=== PATIENT | male | born 1945 | race Caucasian/White ===

== ENCOUNTER 2017-11-21 12:55 | Day surgery (SDC) | payer MEDICARE, OTHER ==
[~2017-11-21] VITALS: Ht 177.8 cm; Wt 153.9 kg
[~2017-11-21 12:55] MED LIST: CIPR500 PO; MELO7.5 PO; OMEP20ER PO; TESTTP TOP; TRIHYD253A PO; VENL75ER PO
[2017-11-21] MEDS ORDERED: PRAVASTATIN SOD10 MG (14:06)
[2017-11-21] MEDS ORDERED: FUROSEMIDE5 GM (14:06)
[2017-11-21] MEDS ORDERED: WARF1 (14:06)
[2017-11-21] MEDS ORDERED: FINA5 (14:07)
[2017-11-21] MEDS ORDERED: LOSA25 (14:07)
[2017-11-21] MEDS ORDERED: OXYB5 (14:07)
[2017-11-21] MEDS ORDERED: BUPR75 (14:07)
== END 2017-11-21 16:27 | disposition home or self-care (01) ==
LOC: ORSCSDS 12:55
DX: Z12.11 Encounter for screening for malignant neoplasm of colon (principal); Z86.010 Personal history of colon polyps; Z80.0 Family history of malignant neoplasm of digestive organs; K57.30 Diverticulosis of large intestine without perforation or abscess without bleeding; D12.0 Benign neoplasm of cecum; D12.4 Benign neoplasm of descending colon; K63.5 Polyp of colon; I10 Essential (primary) hypertension; Z87.891 Personal history of nicotine dependence; G47.30 Sleep apnea, unspecified; Z68.43 Body mass index [BMI] 50.0-59.9, adult; K21.9 Gastro-esophageal reflux disease without esophagitis; E66.01 Morbid (severe) obesity due to excess calories; Z68.42 Body mass index [BMI] 45.0-49.9, adult; I50.9 Heart failure, unspecified; Z79.01 Long term (current) use of anticoagulants; Z79.899 Other long term (current) drug therapy
CPT/HCPCS: J2250; J7120

== ENCOUNTER → 2020-08-18 | Outpatient (CLI) | payer MEDICARE, OTHER ==
[~2020-08-18] MED LIST changes: +BUPR75; +FINA5; +FUROSEMIDE5 GM; +LOSA25; +OXYB5; +PRAVASTATIN SOD10 MG; +WARF1
[2020-08-19 18:21] LABS: Adenovirus F 40/41 Not Detected (NOT DETECT); Astrovirus Not Detected (NOT DETECT); Campylobacter Sp Not Detected (NOT DETECT); Cryptosporidium Not Detected (NOT DETECT); Cyclospora Cayetanensis Not Detected (NOT DETECT); E. Coli O157 Not Detected (NOT DETECT); Entamoeba Histolytica Not Detected (NOT DETECT); Enteroaggregative E. coli-EAEC Not Detected (NOT DETECT); Enteropathogenic E. coli-EPEC Not Detected (NOT DETECT); Enterotoxigenic E. coli-ETEC Not Detected (NOT DETECT); Giardia Lamblia Not Detected (NOT DETECT); Norovirus GI/GII Not Detected (NOT DETECT); Plesiomonas Shigelloides Not Detected (NOT DETECT); Rotavirus A Not Detected (NOT DETECT); Salmonella Sp Not Detected (NOT DETECT); Sapovirus Not Detected (NOT DETECT); Shiga Toxin-prod E. coli-STEC Not Detected (NOT DETECT); Shigella/Enteroin E. coli-EIEC Not Detected (NOT DETECT); Vibrio Cholerae Not Detected (NOT DETECT); Vibrio Sp Not Detected (NOT DETECT); Yersinia Enterocolitica Not Detected (NOT DETECT)
== END | disposition home or self-care (01) ==
LOC: LAB SHORT 20:21
PROVIDERS: Family Medicine
DX: R19.7 Diarrhea, unspecified (principal)
CPT/HCPCS: 0097U

== ENCOUNTER → 2020-12-20 | Outpatient (CLI) | payer MEDICARE, OTHER | END | disposition home or self-care (01) | LOC: LAB SHORT 08:02 | DX: B35.1 Tinea unguium (principal) | CPT/HCPCS: 88305; 88312 ==

== ENCOUNTER → 2021-07-28 | Outpatient (CLI) | payer MEDICARE, OTHER | LOC: LAB SHORT 10:45 | DX: L97.919 Non-pressure chronic ulcer of unspecified part of right lower leg with unspecified severity (principal) | CPT/HCPCS: 87070; 87075; 87205 ==

== ENCOUNTER → 2022-05-15 | Outpatient (CLI) | payer MEDICARE, OTHER | END | disposition home or self-care (01) | LOC: LAB SHORT 11:30 | DX: N39.0 Urinary tract infection, site not specified (principal) | CPT/HCPCS: 87077; 87086; 87186 ==

== ENCOUNTER → 2022-11-02 | Outpatient (CLI) | payer MEDICARE, OTHER | LOC: LAB SHORT 13:36 → LAB 13:36 | DX: L97.829 Non-pressure chronic ulcer of other part of left lower leg with unspecified severity (principal) | CPT/HCPCS: 87070; 87205 ==

== ENCOUNTER 2023-01-02 08:54 | Day surgery (SDC) | payer MEDICARE, OTHER ==
[~2023-01-02] VITALS: Ht 175.3 cm; Wt 154.7 kg
[2023-01-02] VITALS (8 sets, daily range): BP systolic 106–139; BP diastolic 69–89
[~2023-01-02 08:54] MED LIST changes: +ATEN25 PO; +HYDCHL25 PO; -LOSA25; +LOSA50 PO; +METF500 PO; +POTCHL20ER PO; +PRAV20 PO; -PRAVASTATIN SOD10 MG; +TAMS.4ER PO; +TERB250 PO; +VENL150ER PO; -VENL75ER PO; +VITAMIN B-122000 MC1 PO; -WARF1; +WARF1 PO
--- NOTE | 2023-01-02 12:46 | NUR ---
1230 PATIENT RETURNED FROM THE [facility], RFA ANGIOSEAL SITE CDI, NO BLEEDING, NO HEMATOMA. PULSE UNCHANGED.
--- NOTE | 2023-01-02 12:47 | NUR ---
PATIENT ON MONITOR, CALL LIGHT IN REACH. NO PAIN AT THE PRESENT TIME.
--- NOTE | 2023-01-02 12:53 | NUR ---
DR JASSO HERE TO SPEAK TO PATIENT ABOUT FINDINGS DURING PROCEDURE
--- NOTE | 2023-01-02 13:00 | NUR ---
hob elevated to 20 degrees.
--- NOTE | 2023-01-02 13:51 | NUR ---
PATIENT ASSISTED UP IN THE BED. HOB UP 45 DEGREES. R GROIN UNCHANGED. LUNCH TRAY SERVED. PATIENT FEEDING SELF. VVS. LOW BACK PAIN BUT AFTER REPOSITIONING WAS BETTER.
--- NOTE | 2023-01-02 14:42 | NUR ---
PATIENT UP TO REST ROOM AND GETTING DRESSED AT BEDSIDE.
--- NOTE | 2023-01-02 14:55 | NUR ---
patient verbalized understanding of discharge imnstructions and precautions. right groin site remains soft and nontender. no hematom, no bleeding. IV site dced with catheter intact.
--- NOTE | 2023-01-02 15:15 | NUR ---
right groin site remains stable. patient transferred via wheel cchair to waiting vehicle. friend driving
== END 2023-01-02 15:15 | disposition home or self-care (01) ==
LOC: MHTC 08:54
DX: I72.3 Aneurysm of iliac artery (principal); E66.01 Morbid (severe) obesity due to excess calories; E11.9 Type 2 diabetes mellitus without complications; K21.9 Gastro-esophageal reflux disease without esophagitis; I10 Essential (primary) hypertension; E78.5 Hyperlipidemia, unspecified; Z87.891 Personal history of nicotine dependence
CPT/HCPCS: 37252; 37253; 75625; 75716; 75774; 76937; 99152; 99153; C1753; C1760; C1769; C1887; C1894; J1644; J2250; J3010; J7030; J7050; Q9967

== ENCOUNTER 2023-02-12 10:47 | Day surgery (SDC) | payer MEDICARE, OTHER ==
[~2023-02-12] VITALS: Ht 177.8 cm; Wt 146.2 kg
[~2023-02-12 10:47] MED LIST changes: -BUPR75; +BUPR75 PO; +C COMPLEX1000 M1 PO; -FINA5; +FINA5 PO; +Furosemide20 MG PO; +GLUCHON PO; +HORSE CHESTNUT PO; +SILD50TA PO; +THERA-D2000 UNIT PO
[2023-02-12 11:23] VITALS: BP 114/63
--- NOTE | 2023-02-12 12:23 | NUR ---
02/12/23 1223 C[facility]o Cai History, Chart, Medications and Allergies reviewed before start of procedure.MONITOR INTACT WITH CONTINUOUS PULSE OXIMETRY, CONTINUOUS END TITAL CO2, AND INTERMITTENT BLOOD PRESSURE.3-LEAD EKG REVIEWED WITH PHYSICIAN PRIOR TO START OF PROCEDURE.O2 VIA N/C INTACT THROUGHOUT SEDATION/PROCEDURE.See Anesthesia record.
[2023-02-12 12:33] LABS: International Normalized Ratio 1.19; Prothrombin Time Results 12.4 Sec (9.7-11.5)
[2023-02-12 13:05] VITALS: BP 89/60
[2023-02-12 13:10] VITALS: BP 99/64
[2023-02-12 13:15] VITALS: BP 101/70
[2023-02-12 13:30] VITALS: BP 96/57
--- NOTE | 2023-02-12 13:59 | NUR ---
DR BREWSTER WROTE PATIENT'S DISCHARGE INSTRUCTIONS. Discharge instructions reviewed with patient. Patient verbalizes understanding. Copy given to patient to take home. Discharged via wheelchair to private car for ride home WITH FORMER CO- WORKER. SPOKE WITH PATIENT REGADING NOTE FROM ENDO TEAM THAT PATIENT HAS SORE ON BUTTUCKS. PATIENT IS AWARE, REPORTS DIFFICULTY ADDRESSING DUE TO LIVING INDEPENDENT. ENCOURAGED PT TO NOTIFY PRIMARY CARE OF ISSUE. PATIENT REPORTS UNDERSTANDING. STATES WILL FOLLOW UP WITH PCP.
== END 2023-02-12 22:50 | disposition home or self-care (01) ==
LOC: ORSCMMR 10:47 → ORD 12:15 → ORSCMMR 12:15
PROVIDERS: Internal Medicine Gastroenterology
PROC: 0DBM8ZX Excision of Descending Colon, Via Natural or Artificial Opening Endoscopic, Diagnostic (ICD-10-PCS; principal; 2023-02-12 12:15)
DX: Z12.11 Encounter for screening for malignant neoplasm of colon (principal); Z86.010 Personal history of colon polyps; Z80.0 Family history of malignant neoplasm of digestive organs; K51.40 Inflammatory polyps of colon without complications; K57.30 Diverticulosis of large intestine without perforation or abscess without bleeding; E11.9 Type 2 diabetes mellitus without complications; G47.33 Obstructive sleep apnea (adult) (pediatric); K21.9 Gastro-esophageal reflux disease without esophagitis; E66.9 Obesity, unspecified; Z68.42 Body mass index [BMI] 45.0-49.9, adult; Z87.891 Personal history of nicotine dependence; Z79.899 Other long term (current) drug therapy
CPT/HCPCS: 82947; 85610; 88305; J2704; J7120

== ENCOUNTER → 2024-01-15 | Outpatient (CLI) | payer MEDICARE, OTHER | LOC: LAB 16:16 → LAB SHORT 16:16 | DX: M46.38 Infection of intervertebral disc (pyogenic), sacral and sacrococcygeal region (principal); B95.62 Methicillin resistant Staphylococcus aureus infection as the cause of diseases classified elsewhere | CPT/HCPCS: 87070; 87077; 87186; 87205 ==

== ENCOUNTER 2024-01-21 02:58 | Day surgery (SDC) | payer MEDICARE, OTHER | END 2024-01-21 23:04 | disposition home or self-care (01) | LOC: WOUND 02:58 | DX: L89.313 Pressure ulcer of right buttock, stage 3 (principal); J44.9 Chronic obstructive pulmonary disease, unspecified; G47.30 Sleep apnea, unspecified; I89.0 Lymphedema, not elsewhere classified; E11.9 Type 2 diabetes mellitus without complications; N40.0 Benign prostatic hyperplasia without lower urinary tract symptoms; Z87.891 Personal history of nicotine dependence; Z79.01 Long term (current) use of anticoagulants | CPT/HCPCS: G0463 ==

== ENCOUNTER 2024-01-29 04:42 | Day surgery (SDC) | payer MEDICARE, OTHER | END 2024-01-29 23:52 | disposition home or self-care (01) | LOC: WOUND 04:42 | DX: L89.313 Pressure ulcer of right buttock, stage 3 (principal); E11.9 Type 2 diabetes mellitus without complications; Z86.718 Personal history of other venous thrombosis and embolism; Z79.01 Long term (current) use of anticoagulants | CPT/HCPCS: G0463 ==

== ENCOUNTER → 2024-06-11 | Outpatient (CLI) | payer MEDICARE, OTHER | LOC: LAB 17:20 → LAB SHORT 17:20 | DX: L08.9 Local infection of the skin and subcutaneous tissue, unspecified (principal) | CPT/HCPCS: 87070; 87205 ==

== ENCOUNTER 2024-08-26 02:47 | Day surgery (SDC) | payer MEDICARE, OTHER | END 2024-08-26 23:00 | disposition home or self-care (01) | LOC: WOUND 02:47 | DX: L89.312 Pressure ulcer of right buttock, stage 2 (principal); I10 Essential (primary) hypertension; J44.9 Chronic obstructive pulmonary disease, unspecified | CPT/HCPCS: A6213; G0463 ==

== ENCOUNTER 2024-09-02 04:30 | Day surgery (SDC) | payer MEDICARE, OTHER | END 2024-09-02 22:00 | disposition home or self-care (01) | LOC: WOUND 04:30 | DX: L89.322 Pressure ulcer of left buttock, stage 2 (principal); I10 Essential (primary) hypertension; J44.9 Chronic obstructive pulmonary disease, unspecified | CPT/HCPCS: G0463 ==

== ENCOUNTER 2024-11-12 02:38 | Day surgery (SDC) | payer MEDICARE, OTHER | END 2024-11-12 23:00 | disposition home or self-care (01) | LOC: WOUND 02:38 | DX: L89.152 Pressure ulcer of sacral region, stage 2 (principal); I10 Essential (primary) hypertension; E11.9 Type 2 diabetes mellitus without complications; J44.9 Chronic obstructive pulmonary disease, unspecified; Z87.891 Personal history of nicotine dependence; Z79.84 Long term (current) use of oral hypoglycemic drugs; Z91.040 Latex allergy status | CPT/HCPCS: A6213; G0463 ==

== ENCOUNTER 2024-12-11 02:58 | Day surgery (SDC) | payer MEDICARE, OTHER ==
[2024-12-11] MEDS ORDERED: Lidocaine HCl 4% Cream 5 GM ONE (10:20)
== END 2024-12-11 23:00 | disposition home or self-care (01) ==
LOC: WOUND 02:58
DX: L89.152 Pressure ulcer of sacral region, stage 2 (principal); E11.9 Type 2 diabetes mellitus without complications; Z86.718 Personal history of other venous thrombosis and embolism; Z79.01 Long term (current) use of anticoagulants
CPT/HCPCS: A6196; A6213; A9270

== ENCOUNTER 2024-12-18 00:21 | Day surgery (SDC) | payer MEDICARE, OTHER ==
[2024-12-18] MEDS ORDERED: Lidocaine HCl 4% Cream 5 GM ONE (11:01)
== END 2024-12-18 23:00 | disposition home or self-care (01) ==
LOC: WOUND 00:21
DX: L89.312 Pressure ulcer of right buttock, stage 2 (principal); Z91.040 Latex allergy status
CPT/HCPCS: 10140; A9270

== ENCOUNTER 2024-12-25 02:39 | Day surgery (SDC) | payer MEDICARE, OTHER | END 2024-12-25 23:00 | disposition home or self-care (01) | LOC: WOUND 02:39 | DX: L89.312 Pressure ulcer of right buttock, stage 2 (principal); E11.9 Type 2 diabetes mellitus without complications; I10 Essential (primary) hypertension; J44.9 Chronic obstructive pulmonary disease, unspecified | CPT/HCPCS: A6213; G0463 ==

== ENCOUNTER 2025-01-29 02:08 | Day surgery (SDC) | payer MEDICARE, OTHER | END 2025-01-29 23:00 | disposition home or self-care (01) | LOC: WOUND 02:08 | DX: L89.152 Pressure ulcer of sacral region, stage 2 (principal); E11.9 Type 2 diabetes mellitus without complications | CPT/HCPCS: A6213; G0463 ==

== ENCOUNTER 2025-02-05 04:19 | Day surgery (SDC) | payer MEDICARE, OTHER ==
[2025-02-05] MEDS ORDERED: Lidocaine HCl 4% Cream 5 GM ONE (11:27)
== END 2025-02-05 23:00 | disposition home or self-care (01) ==
LOC: WOUND 04:19
DX: L89.152 Pressure ulcer of sacral region, stage 2 (principal); E11.9 Type 2 diabetes mellitus without complications
CPT/HCPCS: A9270; G0463

== ENCOUNTER 2025-02-25 08:05 | Day surgery (SDC) | payer MEDICARE, OTHER | END 2025-02-25 23:00 | disposition home or self-care (01) | LOC: WOUND 08:05 | DX: E11.622 Type 2 diabetes mellitus with other skin ulcer (principal); L89.312 Pressure ulcer of right buttock, stage 2; G47.30 Sleep apnea, unspecified; I10 Essential (primary) hypertension; J44.9 Chronic obstructive pulmonary disease, unspecified; Z79.01 Long term (current) use of anticoagulants; Z79.84 Long term (current) use of oral hypoglycemic drugs; Z79.899 Other long term (current) drug therapy | CPT/HCPCS: A6213; G0463 ==